=== PATIENT | male | born 1945 | race Caucasian/White ===

== ENCOUNTER 2016-12-31 14:12 | Observation (INO) | payer OTHER ==
[~2016-12-31] VITALS: Ht 182.9 cm; Wt 95.4 kg
[2016-12-31 15:13] LABS: INTER. NORMALIZED RATIO 1.8; PROTHROMBIN TIME 20.1 SEC (10.2-12.9)
[2016-12-31 15:15] LABS: CHLORIDE 109 mEq/L (99-109); POTASSIUM 4.5 mEq/L (3.7-5.4); SODIUM 140 mEq/L (136-147)
[2016-12-31 15:17] LABS: GLUCOSE 108 mg/dL (70-99)
[2016-12-31 15:17] LABS: EOSINOPHIL (%) 0.4 % (0-5); HEMATOCRIT 37.9 % (38.0-50.0); IMMATURE GRANULOCYTE (%) 0.4 % (0.0-0.7); INSTRUMENT ABS NEUTROPHIL CT 9.3 K/uL; LYMPHOCYTE COUNT 0.8 K/uL (1.0-2.8); MCH 28.2 PG (29.0-34.0); MCHC 32.7 G/DL (30.0-36.0); MCV 86.3 FL (86-99); MONOCYTE (%) 6.2 % (3-12); MONOCYTE COUNT 0.7 K/uL (0-0.8); NEUTROPHIL (%) 85.3 % (45-76); NEUTROPHIL COUNT 9.3 K/uL (1.8-6.4); PLATELET COUNT 146 K/uL (156-360); RBC DIS.WIDTH-CV 16.6 % (11.8-14.6); RBC DIS.WIDTH-SD 51.8 % (39-53); RED BLOOD COUNT 4.39 M/uL (4.00-5.50); WHITE BLOOD COUNT 10.9 K/uL (4.1-10.2)
[2016-12-31 15:18] LABS: ANION GAP 15 MEQ/L (2-14)
[2016-12-31 15:19] LABS: TOTAL BILIRUBIN 0.6 mg/dL (0.0-1.0)
[2016-12-31 15:21] LABS: ALKALINE PHOSPHATASE 85 IU/L (3-129)
[2016-12-31 15:22] LABS: GFR ESTIMATE (CALCULATED) 37 mL/min/; UREA NITROGEN (BUN) 36 mg/dL (9-23)
[2016-12-31 15:27] LABS: TROP-I INTERPRETATION NEGATIVE; TROPONIN-I < 0.01 ng/mL (0.0-0.30)
[2016-12-31 15:54] LABS: HDL CHOLESTEROL 41 MG/DL (Desirable>=40); LDL CHOLESTEROL 99 mg/dL (Desirable<100); NON-HDL CHOLESTEROL 114 mg/dL (Desirable<160); TOTAL CHOLESTEROL 155 mg/dL (Desirable<200); TRIGLYCERIDES 73 MG/DL (Normal: <150)
[2016-12-31 16:41] LABS: Estimated Average Glucose 131 mg/dL (70-123); HEMOGLOBIN A1c (GLYCOHEMOGLOB) 6.2 % HGB (Below 5.7)
[2016-12-31] MEDS ORDERED: KEFLEX500 MG PO (17:39)
[2016-12-31] MEDS ORDERED: AMLODIPINE BESY10 MG PO (17:39)
[2016-12-31] MEDS ORDERED: COUMADIN5 MG PO (17:39)
[2016-12-31] MEDS ORDERED: ALLOPURINOL100 MG PO (17:39)
[2016-12-31] MEDS ORDERED: ZESTRIL40 MG PO (17:39)
[2016-12-31] MEDS ORDERED: LIPITOR80 MG PO (17:39)
[2016-12-31] MEDS ORDERED: NABI650T PO (17:39)
[2016-12-31] MEDS ORDERED: PROTONIX40 MG PO (17:39)
[2016-12-31 20:04] LABS: ADD MIUA? NO; BILIRUBIN NEGATIVE; BLOOD NEGATIVE; COLOR YELLOW ((YELLOW)); GLUCOSE (STRIP) NEGATIVE; KETONES NEGATIVE; LEUKOCYTES NEGATIVE; NITRITE NEGATIVE; PROTEIN (STRIP) NEGATIVE; SPECIFIC GRAVITY 1.016 (1.000-1.030); UCUL ADDED? NO; UROBILINOGEN 0.2 MG/DL (0.2-1.0)
[2016-12-31 21:30] VITALS: BP 148/72
[2017-01-01 00:05] VITALS: BP 117/56
[2017-01-01 01:17] LABS: TROP-I INTERPRETATION NEGATIVE; TROPONIN-I < 0.01 ng/mL (0.0-0.30)
[2017-01-01 04:05] VITALS: BP 103/56
[2017-01-01 06:06] LABS: HEMATOCRIT 35.1 % (38.0-50.0); MCH 27.5 PG (29.0-34.0); MCHC 31.1 G/DL (30.0-36.0); MCV 88.4 FL (86-99); NRBC (%) 0.3 /100 WBC (0-0); PLATELET COUNT 153 K/uL (156-360); RBC DIS.WIDTH-SD 54.1 % (39-53); RED BLOOD COUNT 3.97 M/uL (4.00-5.50); WHITE BLOOD COUNT 6.1 K/uL (4.1-10.2)
[2017-01-01 06:18] LABS: PROTHROMBIN TIME 23.1 SEC (10.2-12.9)
[2017-01-01 06:50] LABS: TROP-I INTERPRETATION NEGATIVE; TROPONIN-I < 0.01 ng/mL (0.0-0.30)
[2017-01-01 08:20] LABS: ANION GAP 8 MEQ/L (2-14); CHLORIDE 113 MEQ/L (99-109); GFR ESTIMATE (CALCULATED) 40 mL/min/; GLUCOSE 93 mg/dL (70-99); POTASSIUM 4.5 MEQ/L (3.7-5.4); SAMPLE HEMOLYSIS CHECK 0; SAMPLE ICTERIC CHECK 0; SAMPLE LIPEMIA CHECK 0; SODIUM 143 MEQ/L (136-147); UREA NITROGEN (BUN) 28 mg/dL (9-23)
[2017-01-01 09:04] VITALS: BP 133/68
[2017-01-01] MEDS ORDERED: ZOFRAN4 MG PO (11:56)
[2017-01-01] MEDS ORDERED: ANTIVERT25 MG PO (11:56)
== END 2017-01-01 13:58 | disposition home or self-care (01) ==
LOC: EME 14:12 → EDOF 18:43 → ENRESERV 18:45 → 5WEST 20:23
PROVIDERS: Emergency Medicine; Hospitalist
DX: R55 Syncope and collapse (principal); R11.2 Nausea with vomiting, unspecified; I69.398 Other sequelae of cerebral infarction; R53.1 Weakness; Z86.718 Personal history of other venous thrombosis and embolism; Z79.01 Long term (current) use of anticoagulants; I25.10 Atherosclerotic heart disease of native coronary artery without angina pectoris; I25.2 Old myocardial infarction; Z95.1 Presence of aortocoronary bypass graft; E78.00 Pure hypercholesterolemia, unspecified; N17.9 Acute kidney failure, unspecified; I12.9 Hypertensive chronic kidney disease with stage 1 through stage 4 chronic kidney disease, or unspecified chronic kidney disease; N18.2 Chronic kidney disease, stage 2 (mild); Z90.5 Acquired absence of kidney; Z79.2 Long term (current) use of antibiotics; Z86.19 Personal history of other infectious and parasitic diseases; M79.89 Other specified soft tissue disorders; Z79.4 Long term (current) use of insulin; Z82.49 Family history of ischemic heart disease and other diseases of the circulatory system; Z83.3 Family history of diabetes mellitus; Z83.49 Family history of other endocrine, nutritional and metabolic diseases; Z79.84 Long term (current) use of oral hypoglycemic drugs
CPT/HCPCS: 70450; 70551; 71020; 80048; 80053; 80061; 81003; 83036; 84484; 85025; 85027; 85610; 93005; 99281; 99285; G0378; J2405; J7030; J7040